=== PATIENT | male | born 1955 | race Caucasian/White ===

== ENCOUNTER → 2019-07-06 | Outpatient (CLI) | payer BC, OTHER ==
[~2019-07-06] VITALS: Ht 180.3 cm; Wt 133.8 kg
[~2019-07-06] MED LIST: B COMPLEX1 EACH PO; DICLOFENAC SOD50 MG PO; FISH OIL 1,0001 EAC9 PO; NEURONTIN 300M300 M2 PO; OLMESARTAN-HCT1 EACH PO; POTASSIUM99 M1 PO; SOMA350 MG PO; TRAMADOL 50 MG50 MG PO; VITAMIN B-121000 MC2 SUBLING; VITAMIN C500 M1 PO
[2019-07-06 08:49] LABS: URINE BILIRUBIN NEGATIVE (Negative); URINE BLOOD NEGATIVE (Negative); URINE CLARITY CLEAR; URINE COLOR YELLOW; URINE GLUCOSE-RANDOM* NEGATIVE (Negative); URINE KETONES NEGATIVE (Negative); URINE LEUKOCYTES-REFLEX NEGATIVE (Negative); URINE NITRITE-REFLEX NEGATIVE (Negative); URINE PROTEIN (DIPSTICK) NEGATIVE (Negative); URINE SPECIFIC GRAVITY 1.025 (1.005-1.035); URINE UROBILINOGEN 0.2 E.U./dl (0.2-1.0)
[2019-07-06 08:49] LABS: HEMATOCRIT 33.6 % (42.0-52.0); HEMOGLOBIN 11.5 gm/dL (14.0-18.0); MCH 31.4 pg (26.0-34.0); MCHC 34.1 g/dL (28.0-37.0); MCV 92.1 fL (80.0-100.0); RBC 3.64 mil/uL (4.50-6.00); WBC 4.9 thou/uL (4.0-11.0)
[2019-07-06 08:59] LABS: ALBUMIN 3.6 g/dL (3.4-5.0); CALCIUM 9.1 mg/dL (8.5-10.1); CREATININE 1.2 mg/dL (0.7-1.3); POTASSIUM 3.8 mmol/L (3.5-5.1)
[2019-07-06 09:02] LABS: PROTIME 9.9 Seconds (9.3-11.4)
--- NOTE | 2019-08-05 11:33 | EKG ---
[facility] [place] [address] ELECTROCARDIOGRAM REPORT Name: BRANDI BOYCE Room #: REG [facility]#: [id number] Admission: 07/06/19 Attend Phys: Chaitanya Ortiz MD Discharge: Date of : 51 Report #: [id number] THIS REPORT FOR: cc: FAM - Family physician unknown FAM - Family physician unknown Jl Castillo MD ~ THIS REPORT FOR: //name// [facility] Test Date: 2019-07-06 Test Time: 08:49:06 Pat Name: BRANDI BOYCE Department: Room: Gender: Education Diagnostician: [email or web address] : 1955 Requested By: Chaitanya Ortiz Order Number: [id number] MD: Jl Castillo Measurements Intervals [place] Rate: 63 P: 57 MD: 217 QRS: 1 QRSD: 105 T: 55 QT: 395 QTc: 405 Interpretive Statements Sinus rhythm Borderline prolonged MD interval No previous ECG available for comparison Electronically Signed On 07-06-2019 16:26:53 CDT by Jl Castillo [email or web address] <ELECTRONICALLY SIGNED> By: Jl Castillo MD 07/06/19 1626 0849 0849 Jl Castillo MD /DANIEL
== END ==
LOC: PAC 08:07 → TBA 07-18 08:07 → EDSTATUS 07-18 13:16 → TBA 07-18 14:30
PROVIDERS: Orthopaedic Surgery
DX: M16.9 Osteoarthritis of hip, unspecified (principal)

== ENCOUNTER 2019-10-06 06:05 | Inpatient (IN) | payer BC, OTHER ==
[2019-09-30 14:18] LABS: HEMATOCRIT 38.3 % (42.0-52.0); HEMOGLOBIN 13.3 gm/dL (14.0-18.0); MCH 32.4 pg (26.0-34.0); MCHC 34.7 g/dL (28.0-37.0); MCV 93.4 fL (80.0-100.0); RBC 4.1 mil/uL (4.50-6.00); RDW 13.4 % (10.5-14.5); WBC 5.3 thou/uL (4.0-11.0)
[2019-09-30 14:19] LABS: URINE BILIRUBIN NEGATIVE (Negative); URINE BLOOD NEGATIVE (Negative); URINE CLARITY CLEAR; URINE COLOR YELLOW; URINE GLUCOSE-RANDOM* NEGATIVE (Negative); URINE KETONES NEGATIVE (Negative); URINE LEUKOCYTES-REFLEX NEGATIVE (Negative); URINE NITRITE-REFLEX NEGATIVE (Negative); URINE PROTEIN (DIPSTICK) NEGATIVE (Negative); URINE SPECIFIC GRAVITY 1.025 (1.005-1.035); URINE UROBILINOGEN 0.2 E.U./dl (0.2-1.0)
[2019-09-30 14:36] LABS: PROTIME 9.9 Seconds (9.3-11.4)
[2019-09-30 14:41] LABS: ALBUMIN 3.9 g/dL (3.4-5.0); CALCIUM 8.4 mg/dL (8.5-10.1); CREATININE 1.3 mg/dL (0.7-1.3); POTASSIUM 3.9 mmol/L (3.5-5.1)
[~2019-10-06] VITALS: Ht 180.3 cm; Wt 133.8 kg
[2019-10-06 07:27] VITALS: BP 140/81
[2019-10-06 11:45] VITALS: BP 121/85
--- NOTE | 2019-10-06 13:14 | NUR ---
PATIENT ADMITTED FROM OR WITH RIGHT HIP REPLACEMENT, YANNICK DRESSING IN PLACE, THIGH HIGH DANIEL HOSE, SCD'S, ICE PACK TO RIGHT HIP AREA. PATIENT C/O PAIN WITH RIGHT HIP AREA 7/10, PATIENT GIVEN OXYCODONE 1 TABLET AND COLACE. PATIENT HAS LEFT HAND IV WITH 1/2 NS AT 100CC/HR. PATIENT DENIES NAUSEA, WANTS REGULAR DIET, DIET ORDERED. ADMISSION COMPLETED. WILL REPORT OFF TO THE GABRIELLE S/RN.
[2019-10-06 13:52] VITALS: BP 137/79
--- NOTE | 2019-10-06 15:15 | O ---
[facility] [place] [address] OPERATIVE REPORT Name: BRANDI BOYCE Room #: 440-P ADM IN M.R.#: [id number] Admission: 10/06/19 Attend Phys: Chaitanya Ortiz MD Discharge: Date of : 51 Report #: [id number] THIS REPORT FOR: cc: LORENZA - Family physician unknown LORENZA - Family physician unknown Chaitanya Ortiz MD ~ CC: Chaitanya BRITT unknown DATE OF SERVICE: 10/06/2019 PREOPERATIVE DIAGNOSIS: End-stage degenerative arthritis, right hip. POSTOPERATIVE DIAGNOSIS: End-stage degenerative arthritis, right hip. PROCEDURE: Right total hip arthroplasty. SURGEON: Chaitanya Ortiz MD INDICATIONS: This heavy, deconditioned 64-year-old gentleman complains of progressive joint pain in multiple areas. He has already had knee replacements in the past. He now has severe end-stage degenerative arthritis involving the right hip with more moderate arthritis on the left side. He is anxious to go ahead with right total hip replacement. We discussed treatment options and risks and benefits, particularly given his large size. The patient and his understand well, but feel he is unable to achieve any improvement in weight reduction. We elected to go ahead with right total hip replacement at this time. DESCRIPTION OF PROCEDURE: The patient was taken to the operating room where he was placed under general anesthesia. Prophylactic intravenous antibiotics were administered. He was turned to the left lateral decubitus position. The right hip, thigh and leg were meticulously prepped and draped. A slightly curving posterolateral skin incision was made centered over the greater trochanter. This was carried through subcutaneous tissues, fascia and gluteus to expose the posterior aspect of the hip joint. The short external rotators and capsule were taken down and preserved and tagged with several #1 Tevdek sutures. The hip was dislocated. Marked degenerative change and moderate deformity of the femoral head was noted. A femoral neck osteotomy was performed. The femoral canal was then prepared using reamers and hand broaches. The Mccoy and Nephew hip system was utilized and a size 14 stem seemed to fit most appropriately. The calcar was trimmed down to that level. Attention was then directed to the acetabulum. Adequate exposure was established and the acetabulum was sequentially reamed, gradually advancing to a 54 mm reamer. A 54 mm 3-hole StikTite shell was then inserted. This was applied in alignment with his true acetabulum, placing this in about 45 degrees off of vertical and about 20 degrees of anteversion. [address] [address] OPERATIVE REPORT Name: BRANDI BOYCE Room #: 440-P [facility] IN .R.#: [id number] Admission: 10/06/19 Attend Phys: Chaitanya Ortiz MD Discharge: Date of : 51 Report #: [id number] seated nicely and appeared to be very secure. In addition, 2 cancellous screws were placed through the apical holes engaging good periacetabular bone with good additional stabilization. A 36-mm polyethylene liner was then inserted placing the 10-degree elevated rim at about the 9 o'clock posterior position. It seated nicely and appeared to be secure. The permanent Mccoy and Nephew size 14 Synergy high-offset femoral stem was then inserted. This was placed in about 15 degrees of anteversion. It seated nicely and appeared to be secure. A +4 mm x 36 mm cobalt chrome head was applied and impacted on the Ward taper. The hip was reduced. Alignment, range of motion, stability and leg length were assessed and felt to be satisfactory. The wound was copiously irrigated. Good hemostasis was established. The short external rotators and capsule were repaired back to bone using the #1 Tevdek sutures passed through small drill holes in the greater trochanter. A single Hemovac was left in the wound exiting through a separate stab incision. The fascia was closed with multiple #1 Vicryl sutures. The adipose tissues and subcutaneous tissues were closed with 0 Monocryl and the skin was closed with skin gordon. A sterile dressing was applied. The patient was awakened and returned to the recovery room in good condition. <ELECTRONICALLY SIGNED> By: Chaitanya Ortiz MD 10/06/19 1515 0943 0953 Chaitanya Ortiz MD /nt
[2019-10-06 17:12] VITALS: BP 137/81
[2019-10-06 19:55] VITALS: BP 126/71
[2019-10-07 03:15] VITALS: BP 124/81
--- NOTE | 2019-10-07 03:28 | NUR ---
ASSESSMENT COMPLETED. SHIFT STARTED WITH PT C/O SO MUCH PAIN DESPITE GETTING NORCO EARLIER.SINCE THEN, BEEN ALTERNATING BETWEEN IVP MORPHINE AND PERCOCET. I THINK PAIN IS BETTER CONTROLLED THOUGH PT DESCRIBES THE PAIN HAVING CHANGED-HE DOES NOT SEEM TO BE IN DISTRESS. HEMOVAC IN PLACE. ICE SUNDAY PROVIDED. SCDS AND TEDS ALSO IN PLACE. NEURO VASCULAR CHECK TO R FOOT REMAINS INTACT. PT IS AFEBRILE. DENIES ANY NAUSEA OR VOMITING. SATTING OKAY ON ROOM AIR-NO COUGH NOTED. ENCOURAGED TO USE I/S. VOIDING WELL PER URINAL. CALLS APPROPRIATELY.
[2019-10-07 05:48] LABS: HEMATOCRIT 30.5 % (42.0-52.0); HEMOGLOBIN 10.6 gm/dL (14.0-18.0); MCH 32.8 pg (26.0-34.0); MCHC 34.9 g/dL (28.0-37.0); MCV 94.2 fL (80.0-100.0); RBC 3.24 mil/uL (4.50-6.00); RDW 13.2 % (10.5-14.5); WBC 10.4 thou/uL (4.0-11.0)
[2019-10-07 07:57] VITALS: BP 127/74
[2019-10-07 09:37] LABS: CALCIUM 8.2 mg/dL (8.5-10.1); CREATININE 1.4 mg/dL (0.7-1.3); POTASSIUM 3.7 mmol/L (3.5-5.1)
--- NOTE | 2019-10-07 12:20 | NUR ---
ASSESSMENT: CM REVIEWED CHART AND SPOKE WITH PT. PT IS ALERT AND ORIENTED X4. PT REPORTS THAT HE LIVES AT HOME WITH HIS IN A HOUSE. PT REPORTS 2 STEPS WITH HANDRAILS TO ENTER. PT REPORTS ONCE INSIDE ALL HIS NEEDS ARE ON ONE LEVEL. PT REPORTS THAT HE ALREADY HAS A ROLLER WALKER AT HOME. PT STATES HE IS INDEPENDENT WITH ADLS AND AMBULATION AND HAS A SHOWER CHAIR. PT REPORTS THAT HE IS PREFERRING TO GO TO OUTPATIENT THERAPY AT [facility]. HE STATES ALL HE NEEDS IS THE SCRIPT FOR OUTPT THERAPY. PHYSICAL THERAPY SAW PATIENT AND RECOMMENDING OUTPATIENT THERAPY. PT REPORTS HE WILL HAVE NO NEEDS FROM CM.
[2019-10-07 19:15] VITALS: BP 123/70
--- NOTE | 2019-10-07 19:38 | NUR ---
VSS-AFEBRILE. LUNGS CLEAR-ROOM AIR. PAIN WELL CONTROLLED WITH IV AND PO PAIN MEDICATIONS. RIGHT HIP YANNICK DRESSING INTACT. OOB WITH STAFF AND PHYSICAL THERAPY-STEADY ON FEET. CALLS APPROPRIATELY FOR ANY NEEDED ASSISTANCE.
[2019-10-08 03:30] VITALS: BP 114/63
--- NOTE | 2019-10-08 03:34 | NUR ---
ASSUMED CARE OF PT AT 1900. PT IS A/O. INCISION DRESSING IS DRY AND INTACT WITH A SMALL AMOUNT OF BLOODY DRAINAGE. PT HAS REFUSED AMBULATING IN THE HALLWAY BUT AGREED TO STAND AND ALLOW NURSING STAFF TO CHANGE LINENS, ASSESS INCISION, AND LOTION BACK WITH MESSAGE. C/O PAIN THIS SHIFT. PRN PAIN MEDICATION GIVEN DIRECTED. LOW GRADE TEMP NOTED. MANAGED WITH MEDICATION. FALL PRECAUTIONS IN PLACE, CALL LIGHT WITHIN REACH. PT IS PROGRESSING TOWARDS GOALS. WILL CONTINUE TO MONITOR
[2019-10-08 05:41] LABS: HEMATOCRIT 28.9 % (42.0-52.0); HEMOGLOBIN 10.1 gm/dL (14.0-18.0); MCH 33.2 pg (26.0-34.0); MCHC 34.9 g/dL (28.0-37.0); MCV 94.9 fL (80.0-100.0); RBC 3.05 mil/uL (4.50-6.00); RDW 13.3 % (10.5-14.5); WBC 8.8 thou/uL (4.0-11.0)
[2019-10-08 07:30] VITALS: BP 124/65
[2019-10-08] MEDS ORDERED: XARELTO10 MG PO (08:55)
[2019-10-08] MEDS ORDERED: NORCO 10-325 T1 EACH PO (08:56)
[2019-10-08 15:31] VITALS: BP 135/73
--- NOTE | 2019-10-08 18:35 | NUR ---
VSS-AFEBRILE. LUNGS CLEAR-ROOM AIR. TOLERATED PT/OT WELL, PAIN WELL CONTROLLED WITH IV AND PO PAIN MEDICATIONS. REMOVED HEMOVAC PER ORDERS, NON MEASURABLE AMOUNT OF SEROUS DRAINAGE. CALLS APPROPRIATELY FOR ANY NEEDED ASSISTANCE.
[2019-10-08 20:13] VITALS: BP 110/64
[2019-10-09] VITALS (7 sets, daily range): BP systolic 120–140; BP diastolic 61–72
[2019-10-09 05:43] LABS: HEMATOCRIT 25.4 % (42.0-52.0); MCH 33.2 pg (26.0-34.0); MCHC 35.3 g/dL (28.0-37.0); RBC 2.7 mil/uL (4.50-6.00); RDW 13.2 % (10.5-14.5)
--- NOTE | 2019-10-09 05:51 | NUR ---
PT IN CHAIR. VOIDING PER URINAL. LORTAB PROVIDING PAIN RELIEF. RESTING COMFORTABLY. NO NEEDS VOICED. CALL LIGHT WITHIN REACH. FREQUENT OBSERVATION.
--- NOTE | 2019-10-13 16:27 | D ---
[facility] [place] [address] DISCHARGE SUMMARY Name: BRANDI BOYCE Room #: 440-P [facility] IN M.R.#: [id number] Admission: 10/06/19 Attend Phys: Chaitanya Ortiz MD Discharge: 10/09/19 Date of : 51 Report #: [id number] THIS REPORT FOR: cc: LORENZA - Family physician unknown LORENZA - Family physician unknown Chaitanya Ortiz MD ~ THIS REPORT FOR: //name// CC: Chaitanya BRITT unknown DATE OF SERVICE: 10/09/2019 FINAL DIAGNOSIS: End-stage degenerative arthritis, right hip. OPERATIVE PROCEDURE: Right total hip arthroplasty. HISTORY OF PRESENT ILLNESS: This 64-year-old heavy gentleman with rather severe progressive right hip pain, has tried to manage conservatively for quite some time. Now, he is having more severe hip pain and difficulty with ambulation. He has tried to improve his weight as he is quite heavy, but is having difficulty given inability to be very active on the right hip. We have elected to go ahead with right total hip replacement. HOSPITAL COURSE: The patient was admitted and taken to the operating room on 10/06/2019. He underwent right total hip replacement, which he tolerated well. Postoperatively, his course was largely unremarkable. He was able to advance to a regular diet. He was able to resume his preoperative medications. He was able to start organized physical therapy and ambulate with a walker. Initially, this was difficult but gradually he advanced to independent ambulation and was able to manage prolonged walking as well as steps. He seems to be safe and ready for discharge home with family assistance on 10/09/2019. DISCHARGE MEDICATIONS: Include Soma 350 mg 3 times daily as needed for muscle spasm, tramadol 50 mg q. 6 hours p.r.n. for mild pain, hydrocodone 10/325 APAP one q. 8 hours p.r.n. for more severe pain, multivitamin 1 daily, vitamin C 500 mg daily, Xarelto 10 mg daily. He will continue gradually advancing independent activity and ambulation at home. We can organize some home visiting therapy if necessary, but at the time of discharge, he seems to be safe and functionally independent. I will plan to [facility] [address] [place] [address] DISCHARGE SUMMARY Name: BRANDI BOYCE Room #: 440-P [facility] IN [facility].#: [id number] Admission: 10/06/19 Attend Phys: Chaitanya Ortiz MD Discharge: 10/09/19 Date of : 51 Report #: [id number] see him back in my office at about 1 week for routine followup and in 2 weeks for suture removal. <ELECTRONICALLY SIGNED> By: Chaitanya Ortiz MD 10/13/19 1627 0846 0905 Chaitanya Ortiz MD /nt
== END 2019-10-09 16:16 | disposition home or self-care (01) | DRG 470 ==
LOC: TBA 06:05 → PRE 09:53 → 4S 12:05 → PRE 13:13 → 4S 10-09 16:16
PROVIDERS: ADMIT Orthopaedic Surgery; ATTEND Orthopaedic Surgery
PROC: 0SR901Z Replacement of Right Hip Joint with Metal Synthetic Substitute, Open Approach (ICD-10-PCS; principal; 2019-10-06)
DX: M16.11 Unilateral primary osteoarthritis, right hip (principal); I10 Essential (primary) hypertension; Z96.653 Presence of artificial knee joint, bilateral; G62.9 Polyneuropathy, unspecified; D64.9 Anemia, unspecified; Z20.828 Contact with and (suspected) exposure to other viral communicable diseases; Z71.6 Tobacco abuse counseling; Z87.891 Personal history of nicotine dependence; Z79.899 Other long term (current) drug therapy
CPT/HCPCS: 10100; 10102; 50010; 50101; 50382; 50414; 51412; 53000; 53367; 56521; 56525; 56527; 57095; 62110; 62900; 70005